=== PATIENT | female | born 1965 | race Caucasian/White ===

== ENCOUNTER → 2019-05-19 10:58 | Outpatient (BNVA) | payer OTHER, SELFPAY | PROVIDERS: Visit Provider Nurse Practitioner | DX: M54.5 Low back pain (principal); M54.2 Cervicalgia; G50.0 Trigeminal neuralgia; Z79.891 Long term (current) use of opiate analgesic | CPT/HCPCS: 99214 ==

== ENCOUNTER → 2019-07-27 12:29 | Outpatient (BNVA) | payer OTHER, SELFPAY | PROVIDERS: Visit Provider Anesthesiology | DX: G89.29 Other chronic pain (principal); M54.5 Low back pain; M47.819 Spondylosis without myelopathy or radiculopathy, site unspecified; M54.2 Cervicalgia; Z79.891 Long term (current) use of opiate analgesic | CPT/HCPCS: 99213; 99214 ==

== ENCOUNTER 2020-10-24 16:02 | Outpatient (CLI) | payer OTHER, SELFPAY ==
[2020-10-24 16:52] LABS: Basophils % 0.4 %; Eosinophils # 0.2 10^3/uL (0.0-0.8); Eosinophils % 3.2 %; Hematocrit 35.7 % (37.0-47.0); Hemoglobin 11.1 g/dL (11.5-15.3); Lymphocytes # 1.7 10^3/uL (0.8-4.8); Lymphocytes % 31.6 %; Mean Corpuscular HGB Conc 31.1 g/dL (30.0-36.0); Mean Corpuscular Hemoglobin 26.6 pg (28.0-34.0); Mean Corpuscular Volume 85.6 fL (81-99); Mean Platelet Volume 11.3 fL (7.4-10.4); Monocytes # 0.5 10^3/uL (0.2-0.9); Monocytes % 8.8 %; Neutrophils # 2.98 10^3/uL (1.8-7.7); Neutrophils % 55.8 %; Nucleated Red Blood Cells % 0 %; Platelet Count 191 10^3/cmm (130-400); Red Blood Count 4.17 10^6/uL (4.1-5.3); Red Cell Distribution Width 12.8 % (12.1-15.1); White Blood Count 5.3 10^3/uL (4.0-10.0)
--- NOTE | 2020-10-24 17:00 | ECG_ITS ---
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 Measurements Intervals [place] Rate: 69 P: 11 MN: 158 QRS: -48 QRSD: 109 T: 16 QT: 395 QTc: 424 Interpretive Statements SINUS RHYTHM LEFT ANTERIOR FASCICULAR BLOCK [QRS AXIS <= -45, QR IN I, RS IN II] POSSIBLE ANTERIOR MYOCARDIAL INFARCTION [30 ms Q WAVE IN V3/V4, OR R < 0.2 mV IN V4], PROBABLY OLD No previous ECG available for comparison Electronically Signed On 10-24-2020 18:21:38 CDT by Juan Morales M.D. [email or web address]
[2020-10-24 17:10] LABS: Anion Gap 10.4 (5-19); Blood Urea Nitrogen 17 mg/dL (6-20); Calcium 8.5 mg/dL (8.5-10.5); Carbon Dioxide 27 mmol/L (22-29); Chloride 109 mmol/L (98-107); Glomerular Filtration Rate 104.2 mL/min (90-130); Glucose 93 mg/dL (65-115); Osmolality Calculated 295 mOsm/kg (285-295); Potassium 4.4 mmol/L (3.5-5.1); Sodium 142 mmol/L (136-145)
== END 2020-10-24 16:03 | disposition home or self-care (01) ==
PROVIDERS: Visit Provider Specialist
DX: Z01.818 Encounter for other preprocedural examination (principal); I44.7 Left bundle-branch block, unspecified; R94.31 Abnormal electrocardiogram [ECG] [EKG]
CPT/HCPCS: 36415; 80048; 85025; 93005

== ENCOUNTER 2021-04-15 23:49 | Emergency (ER) | payer MEDICARE, SELFPAY ==
[2021-04-16 00:02] VITALS: BP 150/90; PULSE 102; RESP 18; TEMP 36.3; O2SAT 100; BMI 33.8
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
[2021-04-16] MEDS: HYDROcodone-acetaminophen 5-325 mg Tablet 1 TAB PO (01:51)
[2021-04-16 03:27] VITALS: BP 148/84; PULSE 78; RESP 16; O2SAT 99
== END 2021-04-16 03:28 | disposition home or self-care (01) ==
PROVIDERS: Emergency Provider Emergency Medicine; PCP Nurse Practitioner Family
DX: S13.4XXA Sprain of ligaments of cervical spine, initial encounter (principal); V89.2XXA Person injured in unspecified motor-vehicle accident, traffic, initial encounter
CPT/HCPCS: 70450; 70486; 72100; 72125; 73610; 99283

== ENCOUNTER → 2022-01-09 10:30 | Outpatient (BNVA) | payer MEDICARE, OTHER, SELFPAY | PROVIDERS: PCP Nurse Practitioner Family; Visit Provider Emergency Medicine | DX: Z20.822 Contact with and (suspected) exposure to COVID-19 (principal) | CPT/HCPCS: 87426 ==

== ENCOUNTER → 2022-10-15 13:41 | Outpatient (BNVA) | payer MEDICARE, OTHER, SELFPAY | PROVIDERS: PCP Nurse Practitioner Family; Visit Provider Family Medicine | DX: F41.1 Generalized anxiety disorder (principal); R53.83 Other fatigue; R60.0 Localized edema; I10 Essential (primary) hypertension; J45.909 Unspecified asthma, uncomplicated; R13.10 Dysphagia, unspecified; Z12.11 Encounter for screening for malignant neoplasm of colon; B96.89 Other specified bacterial agents as the cause of diseases classified elsewhere; J32.9 Chronic sinusitis, unspecified; M25.562 Pain in left knee; M25.552 Pain in left hip; Z13.1 Encounter for screening for diabetes mellitus; Z13.220 Encounter for screening for lipoid disorders; Z79.899 Other long term (current) drug therapy; Z13.6 Encounter for screening for cardiovascular disorders | CPT/HCPCS: 73502; 73562; 80053; 80061; 83880; 84443; 85025 ==

== ENCOUNTER → 2023-07-14 13:14 | Outpatient (BNVA) | payer MEDICARE, SELFPAY | PROVIDERS: PCP Nurse Practitioner Family; Visit Provider Nurse Practitioner | DX: M25.531 Pain in right wrist (principal); S89.91XA Unspecified injury of right lower leg, initial encounter; W01.0XXA Fall on same level from slipping, tripping and stumbling without subsequent striking against object, initial encounter; M25.511 Pain in right shoulder; M25.571 Pain in right ankle and joints of right foot | CPT/HCPCS: 73030; 73110; 73590; 73610 ==

== ENCOUNTER 2023-08-13 16:20 | Outpatient (CLI) | payer MEDICARE, SELFPAY ==
--- NOTE | 2023-08-13 16:31 | MR_ITS ---
NOTE: Report was unsigned for reason: Ordering provider was edited. Original Signature date and time was: 08/14/23 @1104 WS: [id number] MRI LEFT HIP WITHOUT CONTRAST. COMPARISON: Radiograph 10/15/2022 Multiplanar, multisequence imaging is performed without contrast. Symmetric appearance of the marrow within each hip and the pelvis. There is no fracture or marrow edema. Soft tissues are symmetric with no atrophy. There is minimal narrowing of the hip joints but this is bilateral. Mild acetabular and femoral head osteophytic ridging. No labral tear is identified involving the LEFT hip. There is no significant joint effusion. There is a slight increased amount of fluid as compared to the RIGHT in the greater trochanteric bursa. Increased fluid just deep to the iliotibial band consistent with bursitis. There is also a very minimal amount of fluid in the RIGHT trochanteric bursa. The uterus is midline. 1.3 x 1.9 cm fibroid in the posterior LEFT myometrium. There are numerous small nabothian cysts. IMPRESSION: 1. No acute or prior LEFT hip fracture identified. 2. Moderate LEFT trochanteric bursitis. Small amount of fluid in the RIGHT trochanteric bursa. 3. No labral tear. 4. Mild acetabular and femoral head osteophytic ridging. Mild bilateral osteoarthritis involving each hip. MTDD
== END 2023-08-13 16:21 | disposition home or self-care (01) ==
PROVIDERS: PCP Family Medicine; Visit Provider Family Medicine
DX: M16.0 Bilateral primary osteoarthritis of hip (principal); M70.72 Other bursitis of hip, left hip
CPT/HCPCS: 73721

== ENCOUNTER → 2024-11-02 10:22 | Outpatient (BNVA) | payer MEDICARE, SELFPAY | PROVIDERS: PCP Family Medicine; Visit Provider Orthopaedic Surgery | DX: M54.2 Cervicalgia (principal); M54.9 Dorsalgia, unspecified; M54.50 Low back pain, unspecified; G89.29 Other chronic pain | CPT/HCPCS: 72050; 72110; 99204 ==